=== PATIENT | female | born 1970 | race Caucasian/White ===

== ENCOUNTER 2016-07-23 01:11 | Emergency (ER) | payer OTHER ==
[2016-07-23 01:51] LABS: HEMOGLOBIN 15.2 gm/dl (12.3-15.3); RED BLOOD COUNT 5.1 M/UL (4.00-5.10); WHITE BLOOD COUNT 9.8 K/UL (4.5-11.0)
[2016-07-23 02:01] LABS: BUN/CREATININE RATIO 7 (0-10)
[2016-07-23 07:30] LABS: BUN/CREATININE RATIO 8 (0-10)
== END 2016-07-23 08:05 | disposition home or self-care (01) ==
LOC: ER1 01:11
PROVIDERS: Family Medicine
DX: F10.129 Alcohol abuse with intoxication, unspecified (principal); Z96.652 Presence of left artificial knee joint
CPT/HCPCS: 36415; 36600; 80048; 80053; 80307; 82803; 82962; 83036; 85025; 96361; 96374; 96375; 99285; G0480; J2060; J3486; J7120

== ENCOUNTER → 2016-07-30 | Outpatient (CLI) | payer OTHER | LOC: LAB 02:21 | DX: Z51.81 Encounter for therapeutic drug level monitoring (principal); Z79.899 Other long term (current) drug therapy ==

== ENCOUNTER 2020-06-03 13:00 | Emergency (ER) | payer OTHER ==
[~2020-06-03 13:00] MED LIST: ALPRAZOLAM0.5 MG PO; ANTIVERT 25MG T25 MG PO; AZELASTINE137 MCG/0.; B COMPLEX1 EACH PO; BENADRYL25 MG PO; CYMBALTA60 MG PO; FERROUS SULFAT324 MG PO; FLONASE 0.05% N16 GM; FOLIC ACID1 MG PO; GABAPENTIN600 MG PO; HYDROCHLOROTHIA25 MG PO; HYDROCODON-ACE1 EAC6 PO; HYDROXYCHLOROQ200 MG PO; IBUPROFEN800 MG PO; KLOR-CON M2020 MEQ PO; METHOCARBAMOL750 MG PO; NORCO 5-325 TA1 EACH PO; ONDANSETRON HCL4 MG PO; PERCOCET 10-321 EACH PO; TROKENDI XR50 MG PO; VENLAFAXINE HCL75 MG PO; VITAMIN D250000 UNIT PO; WELLBUTRIN SR150 M1 PO; ZYRTEC10 MG PO; [UNRECOGNIZED DRUG - OTHER] SL
[2020-06-03 14:12] LABS: HEMOGLOBIN 13.4 gm/dl (12.3-15.3); RED BLOOD COUNT 4.46 M/UL (4.00-5.10); WHITE BLOOD COUNT 4.9 K/UL (4.5-11.0)
[2020-06-03 14:40] LABS: BUN/CREATININE RATIO 9 (0-10)
[2020-06-03] MEDS ORDERED: MEDROL DOSEPAK 24 MG PO (15:12)
== END 2020-06-03 15:30 | disposition home or self-care (01) ==
LOC: ER1 13:00
PROVIDERS: Physician Assistant Medical
DX: M48.02 Spinal stenosis, cervical region (principal); R20.2 Paresthesia of skin; G43.909 Migraine, unspecified, not intractable, without status migrainosus; Z88.0 Allergy status to penicillin
CPT/HCPCS: 70450; 72125; 80053; 85025; 93005; 99285

== ENCOUNTER 2021-08-13 18:06 | Emergency (ER) | payer OTHER ==
[~2021-08-13 18:06] MED LIST changes: +MEDROL DOSEPAK 24 MG PO
[2021-08-13 18:49] LABS: RED BLOOD COUNT 4.35 M/UL (4.00-5.10); WHITE BLOOD COUNT 6.1 K/UL (4.5-11.0)
== END 2021-08-14 01:39 | disposition home or self-care (01) ==
LOC: ER1 18:06
PROVIDERS: Family Medicine
DX: R55 Syncope and collapse (principal); S16.1XXA Strain of muscle, fascia and tendon at neck level, initial encounter; S00.83XA Contusion of other part of head, initial encounter; S80.12XA Contusion of left lower leg, initial encounter; F17.200 Nicotine dependence, unspecified, uncomplicated; Z88.0 Allergy status to penicillin; Z88.6 Allergy status to analgesic agent; W01.10XA Fall on same level from slipping, tripping and stumbling with subsequent striking against unspecified object, initial encounter
CPT/HCPCS: 70450; 71045; 72125; 73590; 80053; 80307; 81001; 82550; 82553; 84439; 84443; 84484; 85025; 93005; 99285; G0480